=== PATIENT | male | born 1985 | race Caucasian/White ===

== ENCOUNTER 2016-10-09 10:45 | Outpatient (CLI) | payer MEDICAID ==
[2016-10-09] MEDS ORDERED: GADOPENTETATE DIMEGLUMINE 5 ML VIAL IVP ONE (14:48)
[2016-10-09] MEDS ORDERED: BUFFERED LIDOCAINE 10 ML SYRINGE IU ONE (14:48)
[2016-10-09] MEDS: LIDOCAINE-MPF 1% 5 ML VIAL TD ONE ×2 (14:49→14:50)
== END 2016-10-09 10:46 | disposition home or self-care (01) ==
DX: M75.101 Unspecified rotator cuff tear or rupture of right shoulder, not specified as traumatic (principal)

== ENCOUNTER 2018-09-27 12:05 | Outpatient (CLI) | payer MEDICAID ==
--- NOTE | 2018-09-27 17:51 | MRI Report ---
Reason: KNEE PAIN, LEFT Procedure Date: 09/27/2018 Accession Number: [id number] / [id number] Procedure: MRI - Knee LT W/O CPT Code: FULL RESULT: EXAM: LEFT KNEE MRI WITHOUT CONTRAST EXAM DATE: 09/27/2018 01:02 PM. CLINICAL HISTORY: Left knee pain. COMPARISON: None. TECHNIQUE: Multiplanar, multisequence T1-weighted and fluid-sensitive sequences of the knee without contrast. Other: None. FINDINGS: Bones: No fractures or subluxations. No marrow edema. No bone lesions. Articular Cartilage: Unremarkable. Medial Meniscus: The medial meniscus is intact. Lateral Meniscus: The lateral meniscus is intact. Cruciate Ligaments: The anterior and posterior cruciate ligaments are intact. Collateral Ligaments: The medial collateral and lateral collateral ligamentous structures are intact. Tendons: The quadriceps, patellar, semimembranosus, and popliteus tendons are unremarkable. Musculature: No edema or fatty atrophy. Other: No effusion. No popliteal cyst. No loose bodies. The medial and lateral retinacula are intact. The subcutaneous tissues and fat pads are unremarkable. IMPRESSION: No MRI abnormalities in the knee. [facility] MUSCULOSKELET[facility]IOLOGY SECTION
== END 2018-09-27 12:06 | disposition home or self-care (01) ==
LOC: DI 12:05
PROVIDERS: ATTEND Physician Assistant Medical
DX: M25.562 Pain in left knee (principal)

== ENCOUNTER 2019-12-15 18:58 | Emergency (ER) | payer MEDICAID ==
[2019-12-15 19:09] VITALS: BP 149/95
--- NOTE | 2019-12-15 19:20 | ED Physician Documentation ---
PD HPI UPPER EXT INJURY - Stated complaint Stated Complaint: LT MIDDLE FINGER INJ - Chief complaint Chief Complaint: Ext Problem - History obtained from History obtained from: Patient (A rock fell on his left middle finger while working just prior to arrival. Pain is minimal except when he bumps it on something. Declines pain medication.) Review of Systems Constitutional: denies: Fever, Chills Nose: denies: Rhinorrhea / runny nose, Congestion PD PAST MEDICAL HISTORY - Past Medical History Psych: Anxiety - Past Surgical History Past Surgical History: No - Present Medications Home Medications: Ambulatory Orders Medication Instructions Recorded Confirmed No Known Home Medications 11/30/15 11/30/15 - Allergies Allergies/Adverse Reactions: Allergies Allergy/AdvReac Type Severity Reaction Status Date / Time No Known Drug Allergies Allergy Verified 12/15/19 19:09 - Social History Does the pt smoke?: No Smoking Status: Never smoker Does the pt drink ETOH?: No Does the pt have substance abuse?: No - Immunizations Immunizations are current?: Yes PD ED PE NORMAL - Vitals Vital signs reviewed: Yes - General General: Alert and oriented X 3, No acute distress - Extremities Extremities: Other (Tender and swollen about the middle phalanx of the left middle finger without deformity. Almost full range of motion, normal neurovascular function at the tip) - Neuro Neuro: Alert and oriented X 3, Normal speech Results - Vitals Vitals: Vital Signs - 24 hr 12/15/19 19:06 Temperature 36.5 C Heart Rate 81 Respiratory 16 Rate Blood Pressure 149/95 H O2 Saturation 99 Oxygen O2 Source Room air - Rads (name of study) X-ray left middle finger Radiology: EMP read contemporaneously (Normal) Departure - Departure Disposition: 01 Home, Self Care Clinical Impression: Crushed finger Qualifiers: Encounter type: initial encounter Qualified Code(s): S67.10XA - Crushing injury of unspecified finger(s), initial encounter Condition: Good Record reviewed to determine appropriate education?: Yes Instructions: ED Crush Injury Finger No Fx Comments: Tylenol or ibuprofen as needed for pain, return for new or worsening symptoms. Follow-up with your doctor in 1 week if not better. Forms: Activity restrictions
--- NOTE | 2019-12-15 20:06 | XRAY Report ---
Reason: finger inj Procedure Date: 12/15/2019 Accession Number: [id number] / [id number] Procedure: XR - Finger(s) LT CPT Code: Final Report FULL RESULT: EXAM: LEFT 3rd DIGIT RADIOGRAPHY EXAM DATE: 12/15/2019 07:42 PM. CLINICAL HISTORY: Finger inj. COMPARISON: None. TECHNIQUE: 3 views. FINDINGS: Bones: Normal. No fracture or bone lesion. Joints: Normal. No subluxations. Soft Tissues: Normal. No soft tissue swelling. IMPRESSION: No acute articular or osseous abnormality. Unremarkable soft tissues. [facility]
== END 2019-12-15 20:12 | disposition home or self-care (01) ==
LOC: ED 18:58
DX: S67.193A Crushing injury of left middle finger, initial encounter (principal); W20.8XXA Other cause of strike by thrown, projected or falling object, initial encounter; Y99.0 Civilian activity done for income or pay
CPT/HCPCS: 73140; 99282; 99283

== ENCOUNTER 2023-09-05 03:16 | Emergency (ER) | payer MEDICAID ==
--- NOTE | 2023-09-05 04:00 | ED Physician Documentation ---
PD HPI ABD PAIN - Stated complaint Stated Complaint: ABD PX - History obtained from History obtained from: Patient - Additional information Additional information: 38-year-old male with no reported past medical history presents from home by private vehicle for 4 to 5 days of intermittent stabbing right lower quadrant pain. Pain waxes and wanes without known exacerbating or alleviating factors. Tonight the pain was severe and woke him from sleep so he decided to come in for evaluation. Currently pain-free. He states that he has had kidney stones in the past but this is much different. Patient denies fevers, chills, nausea, vomiting. He does endorse 2 days of constipation Review of Systems Constitutional: denies: Fever, Chills GI: reports: Abdominal Pain, Constipation. denies: Nausea, Vomiting, Diarrhea Musculoskeletal: denies: Neck pain, Back pain, Extremity pain PD PAST MEDICAL HISTORY - Past Medical History Cardiovascular: None Respiratory: None Neuro: None Endocrine/Autoimmune: None GI: None : None HEENT: None Psych: Anxiety Musculoskeletal: None Derm: None - Past Surgical History Past Surgical History: No - Present Medications Home Medications: Ambulatory Orders Medication Instructions Recorded Confirmed No Known Home Medications 11/30/15 09/05/23 - Allergies Allergies/Adverse Reactions: Allergies Allergy/AdvReac Type Severity Reaction Status Date / Time No Known Drug Allergies Allergy Verified 09/05/23 07:18 - Social History Does the pt smoke?: No Smoking Status: Never smoker Does the pt drink ETOH?: No Does the pt have substance abuse?: No - Immunizations Immunizations are current?: Yes - POLST Patient has POLST: No PD ED PE NORMAL - Vitals Vital signs reviewed: Yes - General General: Alert and oriented X 3, No acute distress, Well developed/nourished - Cardiac Cardiac: RRR, Strong equal pulses - Respiratory Respiratory: No respiratory distress - Abdomen Abdomen: Soft, Non tender, Non distended - Derm Derm: Normal color, Warm and dry, No rash - Neuro Neuro: Alert and oriented X 3, drum maker 2-12 intact, No motor deficit, Normal speech Results - Vitals Vitals: Oxygen O2 Source Room air - Labs Labs: Laboratory Tests 09/05/23 09/05/23 09/05/23 04:09 04:09 04:17 WBC 7.4 RBC 5.51 Hgb 17.0 Hct 50.2 MCV 91.1 MCH 30.9 MCHC 33.9 RDW 12.7 Plt Count 237 MPV 10.8 Neut # (Auto) 4.2 Lymph # (Auto) 2.1 [facility] [facility] # (Auto) 0.7 Eos # (Auto) 0.2 Baso # (Auto) 0.1 Absolute Nucleated RBC 0.00 Nucleated RBC % 0.0 Sodium 139 Potassium 3.2 L Chloride 103 Carbon Dioxide 27 Anion Gap 9.0 BUN 14 Creatinine 0.8 Estimated GFR (MDRD) 108 Glucose 105 H Calcium 10.1 Total Bilirubin 1.1 H AST 35 ALT 65 H Alkaline Phosphatase 55 Total Protein 8.0 Albumin 5.0 Globulin 3.0 Albumin/Globulin Ratio 1.7 Lipase 27 Urine Color YELLOW Urine Clarity CLEAR Urine pH 6.5 Ur Specific Foster 1.015 Urine Protein NEGATIVE Urine Glucose (UA) NEGATIVE Urine Ketones NEGATIVE Urine Occult Blood NEGATIVE Urine Nitrite NEGATIVE Urine Bilirubin NEGATIVE Urine Urobilinogen 0.2 (NORMAL) Ur Leukocyte Esterase NEGATIVE Ur Microscopic Review NOT INDICATED Urine Culture Comments NOT INDICATED PD Medical Decision Making - ED course Complexity details: reviewed results, re-evaluated patient, considered differential, d/w patient, d/w family ED course: Well-appearing patient with 4 to 5 days of symptoms. On my exam abdomen is soft with no reproducible tenderness to light or deep palpation. However, due to the nature of patient's pain waking him from sleep will order labs and CT imaging. Currently pain free and declining pain medications. Labs unremarkable, pending CT imaging. Patient signed out to Dr. Reyes at change of shift. Departure - Departure Disposition: 01 Home, Self Care Clinical Impression: Lower abdominal pain, Constipation Condition: Stable Instructions: ED Constipation, ED Abdominal Pain Unkn Cause Male Comments: Your CT scan shows a normal appendix. However there is a fair amount of stool in the rectum and colon. I would recommend a trial of MiraLAX over the next week to see if this helps with the constipation And see if this helps keeps your bowels more regular and soft. If you have any worsening symptoms please return to the ER. Forms: PCP List Discharge Date/Time: 09/05/23 07:48
[2023-09-05 04:16] LABS: BASOPHILS # (AUTO) 0.1 10^3/uL (0.0-0.1); BASOPHILS % (AUTO) 1.5 %; EOSINOPHILS # (AUTO) 0.2 10^3/uL (0.0-0.7); EOSINOPHILS % (AUTO) 3.2 %; HCT - HEMATOCRIT 50.2 % (42.0-52.0); LYMPHOCYTES # (AUTO) 2.1 10^3/uL (1.5-3.5); LYMPHOCYTES % (AUTO) 28.7 %; MEAN CORPUSCULAR HEMOGLOBIN 30.9 pg (27.0-31.0); MEAN CORPUSCULAR HGB CONC 33.9 g/dL (32.0-36.0); MEAN CORPUSCULAR VOLUME 91.1 fL (80.0-94.0); MEAN PLATELET VOLUME 10.8 fL (7.4-11.4); MONOCYTES # (AUTO) 0.7 10^3/uL (0.0-1.0); MONOCYTES % (AUTO) 9.9 %; NEUTROPHILS # (AUTO) 4.2 10^3/uL (1.5-6.6); NEUTROPHILS % (AUTO) 56.6 %; PLT - PLATELET COUNT 237 10^3/uL (130-450); RED BLOOD COUNT 5.51 10^6/uL (4.70-6.10); RED CELL DISTRIBUTION WIDTH 12.7 % (12.0-15.0); WHITE BLOOD COUNT 7.4 x10^3/uL (4.8-10.8)
[2023-09-05 04:44] LABS: BILIRUBIN,URINE NEGATIVE (NEGATIVE); GLUCOSE, URINE (UA) NEGATIVE (NEGATIVE); KETONES,URINE (UA) NEGATIVE (NEGATIVE); LEUKOCYTE ESTERASE, URINE NEGATIVE (NEGATIVE); NITRITE,URINE NEGATIVE (NEGATIVE); OCCULT BLOOD,URINE NEGATIVE (NEGATIVE); PH,URINE 6.5 PH (5.0-7.5); PROTEIN,URINE NEGATIVE (NEGATIVE); UROBILINOGEN,URINE 0.2 (NORMAL) E.U./dL (NORMAL)
[2023-09-05 04:48] LABS: ALBUMIN/GLOBULIN RATIO 1.7 (1.0-2.2); BILIRUBIN,TOTAL 1.1 mg/dL (0.2-1.0); CALCIUM 10.1 mg/dL (8.5-10.3); CREATININE 0.8 mg/dL (0.6-1.3); POTASSIUM 3.2 mmol/L (3.5-4.5)
[2023-09-05 04:49] LABS: CLARITY,URINE CLEAR (CLEAR)
[2023-09-05] MEDS ORDERED: iohexoL-300 100 ML VIAL ONE (05:22)
[2023-09-05] MEDS: iohexoL-300 100 ML VIAL IVP ONE (05:59)
[2023-09-05] MEDS: KETOROLAC 15 MG/ML VIAL IVP STA (06:35)
--- NOTE | 2023-09-05 07:25 | ED Physician Documentation ---
ED Addendum - Addendum Addendum: 09/05/23 07:24 Patient signed out to me at shift change pending results of CT scan. CT has resulted showing a normal appendix. A bowel with a nonobstructive pattern. There is slight increase stool burden in the rectosigmoid junction. Likely of a renal cyst on the right. Labs are unremarkable and patient has been resting comfortably here. Reviewed results of CT scan With patient and mother including incidental finding of right renal cyst. Repeat abdominal exam is benign. Patient reports his last bowel movement was on Wednesday. Reviewed there is some increased stool present and I will recommend a trial of MiraLAX which he is agreeable to. Departure - Departure Disposition: Home, Self Care Clinical Impression: Lower abdominal pain, Constipation Condition: Stable Instructions: ED Constipation, ED Abdominal Pain Unkn Cause Male Comments: Your CT scan shows a normal appendix. However there is a fair amount of stool in the rectum and colon. I would recommend a trial of MiraLAX over the next week to see if this helps with the constipation And see if this helps keeps your bowels more regular and soft. If you have any worsening symptoms please return to the ER. Forms: PCP List
[2023-09-05 07:51] VITALS: BP 150/94; O2SAT 97
--- NOTE | 2023-09-05 09:19 | CT Report ---
PROCEDURE: Abdomen/Pelvis W INDICATIONS: RLQ ABD PAIN CONTRAST: 100 ML OMNI 300 TECHNIQUE: After the administration of intravenous contrast, a CT scan of the abdomen and pelvis was performed. Images were recorded and evaluated at appropriate window settings. Reformats: coronal and sagittal. F or radiation dose reduction, the following was used: automated exposure control, adjustment of mA and /or kV according to patient size. COMPARISON: 11/30/2015 FINDINGS: Image quality: Diagnostic. Lower chest: A small hiatal hernia is incidentally noted. Liver: No solid mass. Diffuse fatty liver infiltration can be seen. Gallbladder and biliary tree: Within normal limits. Spleen: No splenomegaly. Pancreas: No pancreatic ductal dilation. Adrenals: No adrenal nodule. Kidneys and ureters: No hydronephrosis. No renal cystic lesion which requires follow up. No solid mas s. A simple right renal cyst can be seen inferiorly that measures 2.9 cm and 15 Hounsfield units Stomach, bowel and peritoneum: Diverticulosis can be seen, without obed findings of active diverticu litis. There is a moderate volume of stool seen within the rectum. The more proximal colon is relativ addison collapsed. No bowel distension. No pathologic free fluid. A normal appendix is seen. Lymph nodes: No central or retroperitoneal adenopathy. Vessels: No infrarenal aortic aneurysm. PELVIS Reproductive organs: Unremarkable. Bladder: No abnormal wall thickening, accounting for underdistention. Pelvic lymph nodes: No pelvic adenopathy by size criteria. Bones: No aggressive osseous abnormality. Other: No significant ventral or inguinal hernia. IMPRESSION: A moderate volume of stool can be seen within the rectum. Diverticulosis, without findings of active diverticulitis. Additional findings: Small hiatal hernia Fatty liver infiltration Simple right renal cyst Note: No significant discrepancy from the preliminary report. Reviewed by: Kings Thomas MD on 09/05/2023 8:18 AM [facility] Approved by: Kings Thomas MD on 09/05/2023 8:18 AM [facility] Station ID: [id number]
== END 2023-09-05 07:48 | disposition home or self-care (01) ==
LOC: ED 03:16
DX: R10.31 Right lower quadrant pain (principal); K59.00 Constipation, unspecified; K57.30 Diverticulosis of large intestine without perforation or abscess without bleeding; K44.9 Diaphragmatic hernia without obstruction or gangrene; K76.0 Fatty (change of) liver, not elsewhere classified; N28.1 Cyst of kidney, acquired
CPT/HCPCS: 36415; 74177; 80053; 81003; 83690; 85025; 96374; 99283; 99284; Q9967; 81001; 87086